=== PATIENT | female | born 2000 | race Caucasian/White ===

== ENCOUNTER 2022-06-17 13:24 | Emergency (ER) | payer OTHER ==
[~2022-06-17] VITALS: Ht 157.5 cm; Wt 77.1 kg
[2022-06-17] MEDS ORDERED: RESTORIL7.5 MG PO (13:44)
[2022-06-17] MEDS ORDERED: CLONAZEPAM0.5 MG PO (13:44)
[2022-06-17] MEDS ORDERED: PROSCAR5 MG (13:44)
[2022-06-17] MEDS ORDERED: OSEL75CA PO (16:17)
[2022-06-17] MEDS ORDERED: TUSSIN DM SYRU118 ML PO (16:17)
== END 2022-06-17 17:05 | disposition home or self-care (01) ==
LOC: ER 13:24
DX: B34.9 Viral infection, unspecified (principal); J10.1 Influenza due to other identified influenza virus with other respiratory manifestations; Z20.822 Contact with and (suspected) exposure to COVID-19